=== PATIENT | male | born 1970 | race Caucasian/White ===

== ENCOUNTER 2017-07-31 14:08 | Emergency (ER) | payer OTHER, BC ==
[~2017-07-31 14:08] MED LIST: CIPRO500 MG PO; INDOMETHACIN50 MG PO; NORCO 5-325 TA1 EACH PO; SILVADENE20 GM TOP
== END 2017-07-31 16:57 | disposition home or self-care (01) ==
LOC: ED 14:08
DX: S43.401A Unspecified sprain of right shoulder joint, initial encounter (principal); S20.211A Contusion of right front wall of thorax, initial encounter; Z87.891 Personal history of nicotine dependence; Z79.2 Long term (current) use of antibiotics; Z79.891 Long term (current) use of opiate analgesic; Y90.8 Blood alcohol level of 240 mg/100 ml or more; X58.XXXA Exposure to other specified factors, initial encounter
CPT/HCPCS: 70450; 71101; 72125; 73030; 80053; 85025; 90471; 90715; 99284; G0480

== ENCOUNTER 2024-08-21 10:52 | Emergency (ER) | payer BC ==
[~2024-08-21] VITALS: Ht 180.3 cm; Wt 120.7 kg
[2024-08-21 11:27] LABS: EOSINOPHILS 1.2 % (0-6); HEMATOCRIT 45.3 % (35.0-50.0); LYMPHOCYTES 3.9 % (24-44); MCH 29.4 (27-36); MCHC 33.2 g/dl (30-36); MCV 88.4 fl (81-99); MONOCYTES 6.8 % (0-12); NEUTROPHILS 87.1 % (39-80); PLATELET COUNT 290 K/uL (140-440); RBC 5.12 M/ul (4.3-5.7); RDW 13.2 (10.5-15.0)
[2024-08-21] MEDS ORDERED: CEFAZOLIN SODIUM 2 GM/20 ML SYR IV ONE (11:30)
[2024-08-21] MEDS ORDERED: HYDROmorphone HCL 1 MG/ML SYR IV PRN (11:30)
[2024-08-21] MEDS ORDERED: BUPRENORPHINE HC8 MG SL (11:43)
[2024-08-21] MEDS ORDERED: LISINOPRIL10 MG PO (11:43)
[2024-08-21 11:46] LABS: ALBUMIN 3.4 g/dL (3.4-5.0); ALBUMIN/GLOBULIN RATIO 0.74 (1.1-2.4); ANION GAP 11.3 (7-21); BILIRUBIN, TOTAL 1.4 ng/dL (0.2-1.0); BUN/CREATININE RATIO 8.91 (6.0-28.6); CALCIUM 9.8 mg/dL (8.5-10.1); CREATININE, SERUM 1.01 mg/dL (0.70-1.30); POTASSIUM 4.3 mmol/L (3.5-5.1)
[2024-08-21] MEDS ORDERED: CEPHALEXIN500 M1 PO (12:01)
[2024-08-21] MEDS ORDERED: HYDROCODON-ACE1 EA11 PO (12:01)
[2024-08-21 12:25] VITALS: BP 121/92
== END 2024-08-21 12:25 | disposition home or self-care (01) ==
LOC: ED 10:52
PROVIDERS: Emergency Medicine
DX: M70.41 Prepatellar bursitis, right knee (principal); Z79.891 Long term (current) use of opiate analgesic; Z87.891 Personal history of nicotine dependence
CPT/HCPCS: 27301; 36415; 80053; 85025; 87070; 87075; 87205; 96374; 96375; 99283-25; J0690; J1171